=== PATIENT | male | born 1940 | race Caucasian/White ===

== ENCOUNTER → 2016-05-12 | Outpatient (CLI) | payer OTHER ==
[~2016-05-12] MED LIST: AMLO-114 PO; ASPEC325 PO; ATEN-173 PO; CRS10 PO; EZET10TA63 PO; HYDC25 PO; NTRGSL/4 UT; OMEG10007 PO; TELM40TA11 PO; VALA500T60 PO; VITA400C15 PO
--- NOTE | 2016-05-15 08:46 | SPLIT NIGHT TECHNICIAN REPORT ---
[facility] Split Night Polysomnogram - Fleet Manager Report Study date: 05/12/2016 Referring Physician: Dr. Traci Wolff Name: MILDRED LINARES Fleet Manager: Khushboo Park, PSGT. Date of : 1940 Height: 75 years, Height 5' 10.5" Sex: Male Weight: 218 lbs Age: 75 Neck Circum:17 inches BMI: Medications: 30.83 VOLTAREN 75 MG, ZANAFLEX 4 MG, MAXZIDE 25 MG, ZETIA 10 MG, NORVASC 10 MG, APRESOLINE 50 MG, KLOR-CON M20 MEQ, AMBIEN 5 MG, ASPIRIN 81 MG, VALACYCLOVIR HCL 500 MG, NITRO 0.4 MG, OMEGA-3 1000 MG. Patient History 75 YR. OLD MALE IN ROOM 7, PRESENTS TONIGHT WITH SNORING, WITNESSED APNEA, FATIGUE AND HYPERTENSION. PT. STATES THAT HE WAS TOLD 20 YR'S. AGO THAT HE HAD MANI AND TO LOSE 20 LBS, HE WAS NEVER TREATED FOR MANI.PT. STATES THAT HIS SON USES C-PAP.ESS= 8, NECK = 17 INCHES. Parameters Monitored NPSG: E1-M2, E2-M1, Fp1-M2, Fp2-M1, F3-M2, F4-M2, F4-M1, C3-M2, C4-M2, C4-M1, O1-M2, O2-M2, O2-M1, T3-M2, T4-M1, P3-M2, P4-M1, CHIN1, CHIN2, HR, EKG, Legs, PFLOW, SNOR, FLOW, CFLOW, Tidal Volume, THOR, ABDO, SpO2, PLTH, CPRESS, ETCO2 Wave, ETCO2, pH SLEEP SUMMARY DATA DIAGNOSTIC TREATMENT Lights Out: 11:06:26 PM 2:12:56 AM Lights On: 1:59:26 AM 5:41:26 AM Total Recording Time (TRT): 174.5 min. 214.0 min. Total Sleep Time (TST): 100.5 min. 180.0 min. NREM Time: 89.5 min. 143.0 min. REM Time: 11.0 min. 37.0 min. Sleep Period Time (SPT): 129.5 min. 188.0 min. Sleep Efficiency (SE): 58 % 87 % Sleep Latency: 43.5 min. 19.0 min. Arousal Index: 96.7 24.3 PAP Treatment Levels: 5, 6, 7, 8, 9, 10 * Optimal Pressure(s) SLEEP STAGING DATA DIAGNOSTIC TREATMENT Duration (min) TST % Duration (min) TST % Stage Wake: 73.0 min. -- 34.0 min. -- WASO: 29.0 min. -- 8.0 min. -- NREM: 89.5 min. 89 % 143.0 min. 79 % Stage N1: 30.0 min. 30 % 12.0 min. 7 % Stage N2: 59.5 min. 59 % 131.0 min. 73 % Stage N3: 0.0 min. 0 % 0.0 min. 0 % REM: 11.0 min. 11 % 37.0 min. 21 % POSITIONAL DATA Event Count Index Event Count Index Supine: 14 35.6 22 11.9 Supine NREM: 14 35.6 17 13.8 Supine REM: N/A N/A 5 8 Non-Supine: 75 48.4 3 2.6 Non-Supine NREM: 58 41.0 3 2.6 Non-Supine REM: 17 92.7 N/A N/A AROUSAL SUMMARY DATA: Event Count Index Event Count Index Apnea Arousals: 26 22.1 1 1.7 Hypopnea Arousals: 27 16.1 10 3.3 Snore Arousals: 11 6.6 0 0.0 PLM Arousals: 42 25.1 0 0.0 Non-Specific Arousals: 47 28.1 59 19.7 Total Arousals: 162 96.7 73 24.3 MYOCLONUS (PLM) Event Count Index Event Count Index PLM: 239 142.7 0 0.0 PLM AROUSAL: 42 25.1 0 0.0 PLM W/O AROUSAL 239 142.7 0 0.0 PLM W/RESP EVENT 48 0.0 0 0.0 MYOCLONUS (PLM) Event Count Index Event Count Index LM: 4 25.7 12 4.0 LM AROUSAL: 4 2.4 3 1.0 LM W/O AROUSAL LM W/RESP EVENT LM NON SPECIFIC 173 103.3 9 3.0 HEART RATE DATA DIAGNOSTIC TREATMENT Sleep (bpm): 57 61 REM (bpm): 93 95 NREM (bpm): 93 94 Tachycardia Count: 0 0 Tachycardia Duration: 0.00 0 Bradycardia Count: 0 0 Bradycardia Duration: 0.00 0 DIAGNOSTIC PORTION TREATMENT PORTION RESPIRATORY DATA Event Count Index Event Count Index AHI: -- 45.4 -- 8.3 RDI: -- 53.1 -- 8 Obstructive Apnea: 26 15.5 2 0.7 Central Apnea: 3 1.8 3 1.0 Mixed Apnea: 8 4.8 0 0.0 Hypopnea: 39 23.3 20 6.7 RERA: 14 8.4 0 0.0 Total Apneas: 37 22.1 5 1.7 RESPIRATORY DATA REM NREM SLEEP REM NREM SLEEP Supine Position: Obstructive Apneas: N/A 0 0 0 2 2 Central Apneas: N/A 1 1 0 3 3 Mixed Apneas: N/A 2 2 0 0 0 Hypopneas: N/A 11 11 5 12 17 RERA N/A 0 0 0 0 0 Total Supine Events: N/A 14 14 5 17 22 Supine AHI: N/A 35.6 35.6 8 13.8 11.9 Supine RDI: N/A 35.6 35.6 8.1 13.8 11.9 REM NREM SLEEP REM NREM SLEEP Non-Supine Position: Obstructive Apneas: 9 17 26 N/A 0 0 Central Apneas: 0 2 2 N/A 0 0 Mixed Apneas: 4 2 6 N/A 0 0 Hypopneas: 4 24 28 N/A 3 3 RERA 0 14 14 N/A 0 0 Total Supine Events: 17 58 75 N/A 3 3 Supine AHI: 92.7 41.0 48.4 N/A 2.6 2.6 Supine RDI: 92.7 52.8 58.5 N/A 2.6 2.6 OXYGEN DESTAURATION DATA: Event Count Index Event Count Index REM Desaturations: 15 81.8 5 8.1 NREM Desaturations: 65 43.6 18 7.6 SNORE DATA DIAGNOSTIC TREATMENT Snore Time: 2.4 2:31:56 AM Snore TST%: 1 0 Snore Arousal Count: 11 0 Snore Arousal Index: 6.6 0.0 Desaturation Event Summary: Minimum %SpO2 Event Count Mean/Min/Max Duration(sec.) Desaturation Index % Time In Bed > 90 103 23.3 / 5.8 / 60.0 17.1 95.9 86 - 90 0 N/A 0.0 3.6 81 - 85 0 N/A 0.0 0.6 76 - 80 0 N/A 0.0 0.0 71 - 75 0 N/A 0.0 0.0 66 - 70 0 N/A 0.0 0.0 61 - 65 0 N/A 0.0 0.0 56 - 60 0 N/A 0.0 0.0 51 - 55 0 N/A 0.0 0.0 < 50 0 N/A 0.0 0.0 OXYGEN SATURATION DATA DIAGNOSTIC TREATMENT SpO2 Mean Sleep: 93 % 94 % SpO2 Mean REM: 93 % 95 % SpO2 Mean NREM: 93 % 94 % SpO2 Minimum Sleep: 82 % 83 % SpO2 Minimum REM: 85 % 83 % SpO2 Minimum NREM: 82 % 84 % Time Below 90% (TST): 6.6 2.8 Time Below 88% (TST): 3.7 1.1 Total REM NREM Awake <50% 0.0 min. 0.0 min. 0.0 min. 0.0 min. 51 - 60% 0.0 min. 0.0 min. 0.0 min. 0.0 min. 61 - 70% 0.0 min. 0.0 min. 0.0 min. 0.0 min. 71 - 80% 0.0 min. 0.0 min. 0.0 min. 0.0 min. 81 - 90% 15.6 min. 4.6 min. 9.5 min. 1.5 min. 91 - 100% 361.2 min. 43.2 min. 220.9 min. 97.1 min. Average 94 94 94 94 Minimum SpO2 82 83 82 85 Desaturation Event Index 16.2 25.0 21.4 0.6 # Desat. Events below 89% 22 7 15 N/A Time(%) with Saturation below 89% 1.9 0.5 1.3 0.1 Time(min.) with Saturation below 89% 7.3 2.0 4.8 0.4 Recording Fleet Manager Comments: Split -Night: slept in the right, left, supine positions. No cardiac arrhythmia. PLM's noted. No bruxism noted. Snoring was noted and scored as a 3 on a scale of 1 through 5. (0=no snoring, 5=snoring loud enough to be heard through a closed door or down the guti[address] way) At 2 :00 am, Mr. Linares has met specific Split-Night criteria during the diagnostic portion of this study. CPAP was initiated at +4 CMH2O and up-titrated to an optimal level of +10 CMH2O, which nearly eliminated all respiratory events and snoring. A medium Res Med mirage Quattro full face mask, was used during titration awoke to use the restroom one time during the night. Mr. Linares stated, I did not sleep as well as I do when I am in my own bed. The final report will be interpreted and signed by a sleep physician. The completed physician report will then be placed in the patient medical record. Patient displayed severe sleep apnea, his legs and head would move continuously, he would roll from side to side often. Patient would try to sleep supine but would arousal as soon as he had an event, then roll to his side. Moderate snoring was also noted. Patient is a mouth breather so a full-face mask was applied for treatment. Patient seemed to sleep somewhat better with c-pap, he did wake often to adjust mask, it will take some getting use to it for Mr. Linares, he moves his head from side to side often with the mask on. Patient should not sleep supine.Pt. rolled onto his back at the end of the study increased to 10 cm h20 for a brief time when patient woke to end study. Therapy Event: Therapy (cm H20) 0 5 6 7 8 9 10 Total Time at Pressure (min.) 172.5 25.6 13.8 40.5 31.6 83.2 13.2 TST at Pressure (min.) 100.5 5.1 13.8 40.5 31.6 77.2 11.7 # Periods 1 1 1 1 1 1 1 Sleep Onset (min.) 43.5 19.0 0.0 0.0 0.0 0.0 0.0 REM Onset (min.) 124.0 N/A N/A 31.1 N/A 63.4 0.0 Sleep Efficiency % 58 20 100 100 100 92 88 Wakefulness (%) 41.7 80.0 0.0 0.0 0.0 7.2 11.4 Wakefulness (min.) 72.0 20.5 0.0 0.0 0.0 6.0 1.5 NREM 1 (%) 17.4 20.0 28.0 0.0 0.0 3.6 0.0 NREM 1 (min.) 30.0 5.1 3.9 0.0 0.0 3.0 0.0 NREM 2 (%) 34.5 0.0 72.0 87.7 100.0 64.8 0.0 NREM 2 (min.) 59.5 0.0 9.9 35.5 31.6 53.9 0.0 NREM 3 (%) 0.0 0.0 0.0 0.0 0.0 0.0 0.0 NREM 3 (min.) 0.0 0.0 0.0 0.0 0.0 0.0 0.0 REM (%) 6.4 0.0 0.0 12.3 0.0 24.4 88.6 REM (min.) 11.0 0.0 0.0 5.0 0.0 20.3 11.7 # Arousals 162 4 2 17 6 39 5 Arousal Index 96.7 46.7 8.7 25.2 11.4 30.3 25.7 # Snore 124 0 0 0 0 1 0 Snore Index 74.0 0.0 0.0 0.0 0.0 0.8 0.0 AHI 45.4 11.7 0.0 11.8 13.3 4.7 15.4 AHI Supine 35.6 11.8 N/A 19.7 13.3 5.8 15.4 AHI Non-Supine 48.4 0.0 0.0 3.1 N/A 3.3 N/A NREM AHI 39.6 11.7 0.0 10.1 13.3 6.3 N/A REM AHI 92.7 N/A N/A 24.0 N/A 0.0 15.4 RDI 53.1 11.7 0.0 11.8 13.3 4.7 15.4 # Obstructive 26 0 0 0 2 0 0 # Central Ap 3 1 0 0 2 0 0 # Mixed 8 0 0 0 0 0 0 # Hypopneas 39 0 0 8 3 6 3 RERAS 14 0 0 0 0 0 0 Total Respiratory Events 89 1 0 8 7 6 3 Time Below SpO2 89.00% (min.) 5.0 0.0 0.0 1.0 0.1 0.3 0.4 Mean NREM SpO2 (%) 93 94 94 94 93 95 N/A Mean REM SpO2 (%) 93 N/A N/A 92 N/A 95 95 Mean Sleep SpO2 (%) 93 94 94 93 93 95 95 Min NREM SpO2 (%) 82 92 92 84 88 91 N/A Min REM SpO2 (%) 85 N/A N/A 83 N/A 86 86 Position Supine (min.) 23.6 5.1 0.0 21.3 31.6 41.4 11.7 Position Non-supine (min.) 76.9 0.1 13.8 19.3 0.0 35.9 0.0 LM Index Sleep 168.4 0.0 0.0 3.0 5.7 4.7 5.1 LM Index NREM 167.6 0.0 0.0 1.7 5.7 5.3 N/A LM Index REM 174.5 N/A N/A 12.0 N/A 3.0 5.1 Mean Heart Rate (bpm) 57 63 62 62 59 61 59 Min Heart Rate (bpm) 47 59 58 53 53 50 52
--- NOTE | 2016-05-28 17:55 | POLYSOMNOGRAPH REPORT ---
REFERRING PERSON: Dr. Meera Bolivar. MACHINING TECHNICIAN: Nadya Park. Mr. Linares is a 75-year-old male with a history of snoring, witnessed apneas, fatigue and hypertension. He was told that about 20 years ago he had obstructive sleep apnea and had to lose 20 pounds but was never treated for apnea. His son has a history of sleep apnea and uses a CPAP. He returns to the lab to see if positive airway pressure therapy is indicated in him. His [place] Sleepiness Scale score on the evening of this study is 8. BMI is 30.83. Following the technical and digital specifications of the [place] [employer] (AASM) a standard diagnostic polysomnogram was performed monitoring EEG, EOG, EMG (chin and leg deviations), oxygen saturation, body position, digital video, respiratory effort and airflow. The sleep Stage and event scoring was based on the AASM Manual for the Scoring of Sleep and Associated Events 2007 edition. Apneas are defined as a drop in the peak thermal sensor excursion by >90% of baseline for at least 10 seconds. Hypopneas were scored using the 4% oxygen desaturation rule (4A-[employer]) and a decrease in the nasal pressure excursions by >30% of baseline for at least 10 seconds. Respiratory effort-related arousal (RERA's) is defined as a sequence of breaths lasting at least 10 seconds characterized by increasing respiratory effort or flattening of the nasal pressure waveform leading to an arousal from sleep when the sequence of breaths does not meet criteria for an apnea or hypopnea. Apnea Hypopnea index (AHI) is defined as the number of apneas and hypopneas occurring in an hour of sleep. Respiratory disturbance index (RDI) is defined as the number of apneas, hypopneas, and RERA's occurring in an hour of sleep. Mr. Linares did in fact qualify for a split night sleep study. He was observed for 100.5 minutes of sleep time. During that time, he had 30% N1 sleep, 59% N2 sleep, and no time in N3 sleep. There were 11% of the sleep was spent in REM. There were 162 arousals from sleep. 47 of these arousals were nonspecific, 42 were due to periodic limb movements, 11 were due to snoring and the remaining 53 were due to respiratory events. There were 239 periodic limb movements noted on this test. 42 of these periodic limb movements resulted in arousals for an arousal index prior to treatment of 25.1. Mean saturation during observation was 93% with desaturations with respiratory event to 82%. There were 26 obstructive apneas, 3 central apneas and 8 mixed apnea during observation. Additionally, there were 39 hypopneas and 14 RERA. Apnea-hypopnea index was 45.4 with an RDI of 53.1. This is consistent with very severe sleep apnea. Therefore, at 2:00 a.m., this patient was placed on CPAP therapy. He chose a medium ResMed Mirage Quattro full facemask for his titration. He was titrated over the course of the night from a CPAP pressure of 4 to a CPAP pressure of 10. Increasing pressures were needed to prevent apneas, hypopneas and arousals. He was observed on a pressure of 9 for 77.2 minutes of sleep time. During that time, there were 20.3 minutes of REM sleep. This was supine REM sleep. AHI and RDI on this pressure were both 4.7 and saturations were less than 89% for 0.3 minutes of sleep time. IMPRESSION AND PLAN: Successful split night sleep study in this patient with severe sleep apnea. I would recommend that he be started on CPAP at a pressure of 9. A download from his machine can be reviewed in 1 month both to check compliance as well as apnea-hypopnea index and further pressure adjustments can occur at that time.
== END | disposition home or self-care (01) ==
LOC: C.NEUR 21:00
PROVIDERS: ATTEND Family Medicine
DX: F51.19 Other hypersomnia not due to a substance or known physiological condition (principal); R06.83 Snoring; R53.83 Other fatigue; E66.9 Obesity, unspecified; I10 Essential (primary) hypertension; F51.04 Psychophysiologic insomnia; R06.81 Apnea, not elsewhere classified